=== PATIENT | female | born 1945 | race Two or more races ===

== ENCOUNTER 2021-08-30 08:00 | Day surgery (SDC) | payer OTHER ==
[~2021-08-30] VITALS: Ht 152.4 cm; Wt 49.9 kg
[~2021-08-30 08:00] MED LIST: CHILDREN'S ASPI81 MG PO; GLUMETZA500 MG PO; LANTUS; SIMVASTA PO; TIROSINT50 MCG PO; ZESTRIL5 MG PO
[2021-08-30] MEDS ORDERED: SIMVASTATIN40 MG (08:16)
== END 2021-08-30 09:00 | disposition home or self-care (01) ==
LOC: CIR.AMB 08:00 → EDSTATUS 12:15 → OB/GYN 12:15 → O/R 13:00 → OB/GYN 15:30
PROVIDERS: ATTEND Specialist
DX: C51.8 Malignant neoplasm of overlapping sites of vulva (principal)